=== PATIENT | male | born 2000 | race Hispanic/Latino ===

== ENCOUNTER 2020-01-04 23:40 | Emergency (ER) | payer BC ==
--- NOTE | 2020-01-05 02:30 | ER ---
Nurse's Notes [facility] Name: Bigg Beyer Age: 19 yrs Sex: Male : 2000 Arrival Date: 01/04/2020 Time: 23:40 Bed External Waiting Private MD: Diagnosis: Presentation: 01/04 00:55 Coronavirus screen: Proceed with normal triage. Ebola Screen: Patient negative for sg fever greater than or equal to 101.5 degrees Fahrenheit, and additional compatible Ebola Virus Disease symptoms Patient denies exposure to infectious person. Patient denies travel to an Ebola-affected area in the 21 days before illness onset. No symptoms or risks identified at this time. Initial Sepsis Screen: Does the patient meet any 2 criteria? No. Patient's initial sepsis screen is negative. Does the patient have a suspected source of infection? No. Patient's initial sepsis screen is negative. Risk Assessment: Do you want to hurt yourself or someone else? Patient reports no desire to harm self or others. Onset of symptoms was January 05, 2020. Care prior to arrival: None. Transition of care: patient was not received from another setting of care. 00:55 Method Of Arrival: Ambulatory sg 00:55 Acuity: SHERYL 3 sg 02:20 Chief complaint: Chief complaint: Patient states: I feel like my hearts racing, and Im sg a little short of breath. Shortness of breath x 2 days, reports having palpitations that come and go, pt denies n/v/d/fever. Historical: - Allergies: 01/03 00:55 No Known Allergies; sg - PMHx: 00:55 None; sg - Immunization history:: Adult Immunizations up to date. - Social history:: Smoking status: Patient reports the use of cigarette tobacco products. Screenin/12 02:29 Abuse screen: Denies threats or abuse. Denies injuries from another. sg ED Course: 01/03 00:55 Arm band placed on. sg 23:40 Patient arrived in ED. ds1 01/04 04:23 Triage completed. sg Administered Medications: No medications were administered Outcome: 02:29 Patient left the ED. sg 02:29 Eloped from waiting room, Time discovered patient gone: January 05, 2020 at 02:29 sg 02:29 Condition: stable Signatures: Nahun Kidd RN Elsa Duong ds1 Corrections: (The following items were deleted from the chart) 04: 02:20 Chief complaint: sg sg 04:24 02:01 Arm band placed on sg sg
== END 2020-01-05 02:29 | disposition left against medical advice (07) ==
LOC: ER 23:40
DX: Z53.21 Procedure and treatment not carried out due to patient leaving prior to being seen by health care provider (principal)
CPT/HCPCS: 99281

== ENCOUNTER 2021-04-22 13:19 | Emergency (ER) | payer BC ==
[2021-04-22 13:50] LABS: Absolute Lymphocytes (CBC) 3.4 K/uL (0.7-4.9); Basophils % 0.7 % (0-1.3); Lymphocytes % 33.2 % (15.3-44.8); MPV 8.7 fL (7.6-11.3); RBC Red Blood Cell Count 5.21 M/uL (4.33-5.43)
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
[2021-04-22 14:00] LABS: Protime INR 0.98
[2021-04-22 14:11] LABS: BUN Blood Urea Nitrogen 10 mg/dL (7-18); Bicarbonate 26 mmol/L (21-32); Glucose Level 92 mg/dL (74-106); Potassium 3.8 mmol/L (3.5-5.1); Sodium Level 141 mmol/L (136-145); Troponin (Emerg Dept Use Only) < 0.02 ng/mL (0.0-0.045)
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
[2021-04-22 15:10] VITALS: TEMP 98.5
[2021-04-22 15:13] VITALS: BP 135/86; O2SAT 99
--- NOTE | 2021-04-23 07:45 | EKG ---
Test Date: 2021-04-22 Test Time: 13:29:52 Plastic Bubble Packer: NICO MEASUREMENT RESULTS: Intervals: Rate: 103 SD: 142 QRSD: 82 QT: 330 QTc: 432 [place]: P: 20 SD: 142 QRS: 31 T: -35 INTERPRETIVE STATEMENTS: Sinus tachycardia Possible Inferior infarct, age undetermined Abnormal ECG Compared to ECG 01/07/2020 10:19:23 Sinus rhythm no longer present T-wave abnormality no longer present Possible ischemia no longer present Myocardial infarct finding still present Electronically Signed On 04-23-21 07:44:14 CDT by Sean Pleitez
== END 2021-04-22 15:00 | disposition home or self-care (01) ==
LOC: ER 13:19
DX: R55 Syncope and collapse (principal); V89.2XXA Person injured in unspecified motor-vehicle accident, traffic, initial encounter
CPT/HCPCS: 36415; 70450; 71045; 80048; 84484; 85025; 85610; 85730; 93005; 99284

== ENCOUNTER 2022-12-17 06:01 | Emergency (ER) | payer BC ==
[2022-12-17 08:06] LABS: Absolute Lymphocytes (CBC) 1.5 K/uL (0.7-4.9); Hematocrit 44.5 % (39.6-49.0); Lymphocytes % 12.8 % (15.3-44.8); MPV 9.1 fL (7.6-11.3); RBC Red Blood Cell Count 5.29 M/uL (4.33-5.43)
[2022-12-17 08:08] LABS: Protime INR 1.08
[2022-12-17 08:29] LABS: Albumin 3.6 g/dL (3.4-5.0); Bilirubin Direct 0.1 mg/dL (0-0.2); Bilirubin Indirect, Calculated 0.3 mg/dL (0.2-0.8); Bilirubin Total 0.4 mg/dL (0.2-1.0); Magnesium 2.3 mg/dL (1.6-2.4); Protein, Total 7.6 g/dL (6.4-8.2)
[2022-12-17 08:30] LABS: Troponin High Sensitivity 13607.1 pg/mL (<58.9)
[2022-12-17] MEDS ORDERED: ASPIRIN 81 MG CHEWABLE TABLET ONE (08:47)
[2022-12-17] MEDS ORDERED: CLOPIDOGREL 75 MG TABLET ONE (08:47)
[2022-12-17] MEDS ORDERED: METOPROLOL TAR 50 MG TAB ONE (08:47)
[2022-12-17] MEDS ORDERED: ATORVASTATIN 40 MG TAB ONE (08:47)
[2022-12-17] MEDS ORDERED: HEPARIN 5000 UNIT/ML 1 ML VIAL ONE (08:47)
[2022-12-17] MEDS ORDERED: FAMOTIDINE 20 MG/2 ML VIAL IV ONE (08:48)
[2022-12-17] MEDS ORDERED: METOPROLOL TARTRATE 5 MG/5 ML INJ IV ONE (08:48)
[2022-12-17] MEDS ORDERED: HEPARIN/D5W 25,000 UNIT/500 ML BAG IV ONE (08:48)
[2022-12-17] MEDS ORDERED: NA CHLORIDE 0.9% 1,000 ML ONE (08:48)
--- NOTE | 2022-12-17 08:52 | ER ---
Nurse's Notes [facility] Name: Bigg Beyer Age: 22 yrs Sex: Male : 2000 Arrival Date: 12/17/2022 Time: 06:01 Bed 7 Private MD: Diagnosis: Non ST elevation [place];Dyspnea;Morbid (severe) obesity with alveolar hypoventilation;Chest pain, unspecified Presentation: 12/17 06:09 Coronavirus screen: Vaccine status: Patient reports receiving the 2nd dose of the covid pf1 vaccine. pfizer Client denies travel out of the [place] in the last 14 days. At this time, the client does not indicate any symptoms associated with coronavirus-19. Ebola Screen: Patient negative for fever greater than or equal to 101.5 degrees Fahrenheit, and additional compatible Ebola Virus Disease symptoms. Initial Sepsis Screen: Does the patient meet any 2 criteria? No. Patient's initial sepsis screen is negative. Does the patient have a suspected source of infection? No. Patient's initial sepsis screen is negative. Risk Assessment: Do you want to hurt yourself or someone else? Patient reports no desire to harm self or others. 06:09 Method Of Arrival: Wheelchair pf1 06:09 Acuity: SHERYL 2 pf1 09:34 Chief complaint: Patient states: chest pain since last night. Onset of symptoms was iw December 17, 2022. Historical: - Allergies: 06:17 No Known Allergies; pf1 - PMHx: 08:59 Sleep Apnea; unknown cadiac arrhythmia; iw - PSHx: 08:59 loop recorder; iw - Family history:: pertinent for. Screenin:57 [facility] ED Fall Risk Assessment (Adult) History of falling in the last 3 months, iw including since admission No falls in past 3 months (0 pts). Abuse screen: Denies threats or abuse. Denies injuries from another. Nutritional screening: No deficits noted. Tuberculosis screening: No symptoms or risk factors identified. Assessment: 08:56 General: Appears in no apparent distress. Behavior is calm, cooperative. Pain: iw Complains of pain in mid-sternal area Pain does not radiate. Pain began Is intermittent. Neuro: Level of Consciousness is awake, alert, obeys commands, Oriented to person, place, time, situation, Moves all extremities. Full function. Cardiovascular: Reports chest pain. Respiratory: Respiratory effort is even, unlabored, Respiratory pattern is regular, symmetrical. Derm: Skin is intact, is healthy with good turgor. Musculoskeletal: Range of motion: intact in all extremities. Vital Signs: 06:09 BP 136 / 86; Pulse 101; Resp 18; Temp 98.9; Pulse Ox 97% on R/A; Weight 161.03 kg; pf1 Height 5 ft. 7 in. ; Pain 8/10; 08:55 BP 110 / 74; Pulse 96; Resp 19; Pulse Ox 100% on R/A; iw 06:09 Body Mass Index 55.60 (161.03 kg, 170.18 cm) pf1 06:09 Pain Scale: Adult pf1 ED Course: 06:02 Patient arrived in ED. jj6 06:17 Triage completed. pf1 07:18 Chase Wilson MD is Attending Physician. dread 07:57 XRAY Chest (1 view) In Process Unspecified. EDMS 07:57 Initial lab(s) drawn, by il, sent to lab. Inserted saline lock: 20 gauge in right tm3 antecubital area, using aseptic technique. 07:58 PREGU Sent. tm3 07:58 Urinalysis w/ reflexes Sent. tm3 07:58 Lipase Sent. tm3 08:00 0800 SPOKE WITH [facility] FOR TRANSFER DECLINED PT DUE TO COMPACITY. kj1 08:03 Isaura Khan, RN is Primary Nurse. iw 08:08 EKG done, by ED staff. tm3 08:57 Patient has correct armband on for positive identification. Client placed on continuous iw cardiac and pulse oximetry monitoring. NIBP monitoring applied. monitor technician on. 09:06 Inserted saline lock: 20 gauge in left antecubital area, using aseptic technique. iw Patient maintains SpO2 saturation greater than 95% on room air. 09:33 No provider procedures requiring assistance completed. Patient transferred, IV remains iw in place. 16:[address] WILSON CALLED AND SPOKE WITH [facility] \T\ 830 TO FOR TRANSFER kj1 0857 ACCEPTANCE 0855 ADMIN APPROVAL PT [facility]. Administered Medications: 08:31 CANCELLED (Duplicate Order): Aspirin PO Chewable Tablet 81 mg PO once dread 08:55 Drug: Aspirin PO Chewable Tablet 324 mg Route: PO; iw 09:30 Follow up: Response: No adverse reaction iw 08:55 Drug: Clopidogrel PO 300 mg Route: PO; iw 09:30 Follow up: Response: No adverse reaction iw 08:55 Drug: Atorvastatin PO 40 mg Route: PO; iw 09:10 Follow up: Response: No adverse reaction iw 08:58 Drug: Metoprolol PO 50 mg Route: PO; iw 09:30 Follow up: Response: No adverse reaction iw 09:00 Drug: Heparin (DVT/PE- Bolus per protocol) - HEParin IVP 80 units/kg {Co-Signature: aa5 iw (Felicita Fierro RN).} Route: IVP; Site: right antecubital; 09:30 Follow up: Response: No adverse reaction iw 09:15 Drug: Heparin (DVT/PE Drip) - ([place] [address] units, D5W IV 500 ml) 18 units/kg/hr iw {Co-Signature: aa5 (Felicita Fierro RN).} Route: IV; Rate: per protocol; Site: right antecubital; 09:30 Follow up: IV Status: Infusion continued upon transfer iw 09:16 Drug: Famotidine IVP 20 mg Route: IVP; Site: left antecubital; iw 09:28 Drug: NS 0.9% IV 1000 ml Route: IV; Rate: 1 bolus; Site: left antecubital; iw 09:33 Follow up: IV Status: Infusion continued upon transfer iw 09:28 Not Given (Patient Refused): Metoprolol IVP 5 mg IVP once; Hold for SBP <100 or HR <60. iw Medication: 09:34 VIS not applicable for this client. iw Outcome: 08:51 ER care complete, transfer ordered by MD. [place] 09:33 Transferred by helicopter to [facility], Transfer form completed. X-rays sent iw w/ patient. 09:33 Condition: stable 09:33 Discharge instructions given to patient, family, Instructed on the need for transfer. 09:34 Patient left the ED. iw Signatures: Dispatcher [employer] EDLarry Christiansen 3 Chase Wilson MD MD cha Williams, Irene, RN RN iw Dulce Childress kj1 Pamela Ochoa jj6 Emma Goodwin RN RN pf1 Felicita Fierro RN aa5 Corrections: (The following items were deleted from the chart) 07:24 06:09 Chief complaint: Patient states: substernal chest pain of 8 with SOB,onset 0515, iw while sleeping. 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 pf1 08:59 08:55 Pulse 96bpm; Resp 19bpm; Pulse Ox 100% RA; iw iw
--- NOTE | 2022-12-17 08:52 | EDPHYS ---
Physician Documentation [facility] Name: Bigg Beyer Age: 22 yrs Sex: Male : 2000 Arrival Date: 12/17/2022 Time: 06:01 Bed 7 Private MD: ED Physician Chase Cummings HPI: 12/17 08:36 This 22 yrs old Male presents to ER via Wheelchair with complaints of Chest dread Pain, Breathing Difficulty. 08:36 The patient or guardian reports chest pain that is located primarily in the substernal dread area. The pain does not radiate. Associated signs and symptoms: The patient has no apparent associated signs or symptoms. The chest pain is described as causing indigestion, a pressure. Duration: The patient or guardian reports a single episode, that is now resolved. Modifying factors: The symptoms are alleviated by nothing. the symptoms are aggravated by nothing. Severity of pain: At its worst the pain was severe in the emergency department the pain has resolved and did so just prior to arrival. The patient has not experienced similar symptoms in the past. Historical: - Allergies: 06:17 No Known Allergies; pf1 - PMHx: 08:59 Sleep Apnea; unknown cadiac arrhythmia; iw - PSHx: 08:59 loop recorder; iw - Family history:: pertinent for. ROS: 08:36 Constitutional: Negative for fever, chills, and weight loss, Eyes: Negative for injury, dread pain, redness, and discharge, ENT: Negative for injury, pain, and discharge, Neck: Negative for injury, pain, and swelling, Respiratory: Negative for shortness of breath, cough, wheezing, and pleuritic chest pain, Abdomen/GI: Negative for abdominal pain, nausea, vomiting, diarrhea, and constipation, Back: Negative for injury and pain, : Negative for injury, bleeding, discharge, and swelling, MS/Extremity: Negative for injury and deformity, Skin: Negative for injury, rash, and discoloration, Neuro: Negative for headache, weakness, numbness, tingling, and seizure, Psych: Negative for depression, anxiety, suicide ideation, homicidal ideation, and hallucinations, Allergy/Immunology: Negative for hives, rash, and allergies, Endocrine: Negative for neck swelling, polydipsia, polyuria, polyphagia, and marked weight changes, Hematologic/Lymphatic: Negative for swollen nodes, abnormal bleeding, and unusual bruising. 08:36 Cardiovascular: Positive for chest pain, of the chest. Exam: 08:36 Constitutional: This is a well developed, well nourished patient who is awake, alert, dread and in no acute distress. Head/Face: Normocephalic, atraumatic. Eyes: Pupils equal round and reactive to light, extra-ocular motions intact. Lids and lashes normal. Conjunctiva and sclera are non-icteric and not injected. Cornea within normal limits. Periorbital areas with no swelling, redness, or edema. ENT: Nares patent. No nasal discharge, no septal abnormalities noted. Tympanic membranes are normal and external auditory canals are clear. Oropharynx with no redness, swelling, or masses, exudates, or evidence of obstruction, uvula midline. Mucous membranes moist. Neck: Trachea midline, no thyromegaly or masses palpated, and no cervical lymphadenopathy. Supple, full range of motion without nuchal rigidity, or vertebral point tenderness. No Meningismus. Chest/axilla: Normal chest wall appearance and motion. Nontender with no deformity. No lesions are appreciated. Cardiovascular: Regular rate and rhythm with a normal S1 and S2. No gallops, murmurs, or rubs. Normal PMI, no JVD. No pulse deficits. Respiratory: Lungs have equal breath sounds bilaterally, clear to auscultation and percussion. No rales, rhonchi or wheezes noted. No increased work of breathing, no retractions or nasal flaring. Abdomen/GI: Soft, non-tender, with normal bowel sounds. No distension or tympany. No guarding or rebound. No evidence of tenderness throughout. Back: No spinal tenderness. No costovertebral tenderness. Full range of motion. Male : Normal genitalia with no discharge or lesions. Skin: Warm, dry with normal turgor. Normal color with no rashes, no lesions, and no evidence of cellulitis. MS/ Extremity: Pulses equal, no cyanosis. Neurovascular intact. Full, normal range of motion. Neuro: Awake and alert, GCS 15, oriented to person, place, time, and situation. Cranial nerves II-XII grossly intact. Motor strength 5/5 in all extremities. Sensory grossly intact. Cerebellar exam normal. Normal gait. Psych: Awake, alert, with orientation to person, place and time. Behavior, mood, and affect are within normal limits. 08:36 ECG was reviewed by the Attending Physician. 09:09 Musculoskeletal/extremity: DVT Exam: No signs of deep vein thrombosis. no pain, no dread swelling, no tenderness, negative Homans' sign noted on exam, no appreciated bluish discoloration, no erythema, no increased warmth. Vital Signs: 06:09 BP 136 / 86; Pulse 101; Resp 18; Temp 98.9; Pulse Ox 97% on R/A; Weight 161.03 kg; pf1 Height 5 ft. 7 in. ; Pain 8/10; 08:55 BP 110 / 74; Pulse 96; Resp 19; Pulse Ox 100% on R/A; iw 06:09 Body Mass Index 55.60 (161.03 kg, 170.18 cm) pf1 06:09 Pain Scale: Adult pf1 MDM: 07:18 Patient medically screened. dread 08:36 Differential diagnosis: abnormal EKG, acute myocardial infarction, acute pericarditis, dread anxiety, coronary artery disease chest wall pain, Cholelithiasis hiatal hernia, mitral valve prolapse, pancreatitis, peptic ulcer disease, pleurisy, pulmonary embolus, stable angina, thoracic aortic disection, unstable angina. HEART Score: History: Highly Suspicious (2), ECG: Non specific repolarization disturbance / LBTB / PM (1), Age: Risk Factors: > or = 3 Risk factors for atherosclerotic disease (2), [Hypertension] [+ Family HX] [Obesity] Troponin: > or = 3 x Normal Limit (2). [place] Risk Score: 1 - Three or more CAD risk factors, 1- Known CAD. Data reviewed: vital signs, nurses notes, lab test result(s), EKG, radiologic studies, plain films. Consideration of Admission/Observation Escalation of care including admission/observation considered. I considered the following discharge prescriptions or medication management in the emergency department Medications were administered in the Emergency Department. See MAR. Historians other than the Patient: Family Member: MOM. Care significantly affected by the following chronic conditions: Hypertension, Obesity. Counseling: I had a detailed discussion with the patient and/or guardian regarding: the historical points, exam findings, and any diagnostic results supporting the discharge/admit diagnosis, the presence of at least one elevated blood pressure reading (>120/80) during this emergency department visit, lab results, radiology results, the need to transfer to another facility, for higher level of care, [facility] does not immediately have the required specialist. 09:09 Test considered but Not performed: CT: NO CT PE. 12/17 07:20 Order name: Basic Metabolic Panel; Complete Time: 08:31 12/17 07:20 Order name: CBC with Diff; Complete Time: 08:30 dread 12/17 07:20 Order name: D-Dimer; Complete Time: 08:12/17 07:20 Order name: LFT's; Complete Time: 08:31 12/17 07:20 Order name: Magnesium; Complete Time: 08:12/17 07:20 Order name: NT PRO-BNP; Complete Time: :12/17 07:20 Order name: PT-INR; Complete Time: 08:12/17 07:20 Order name: Troponin HS; Complete Time: 08:31 12/17 07:20 Order name: Lipase; Complete Time: :12/17 07:20 Order name: XRAY Chest (1 view); Complete Time: 09:33 12/17 07:20 Order name: EKG; Complete Time: 07:21 12/17 07:20 Order name: Cardiac monitoring; Complete Time: 08:15 12/17 07:20 Order name: EKG - Nurse/Tech; Complete Time: 08:08 12/17 07:20 Order name: IV Saline Lock; Complete Time: 08:15 12/17 07:20 Order name: Labs collected and sent; Complete Time: 07:58 12/17 07:20 Order name: O2 Per Protocol; Complete Time: 08:15 12/17 07:20 Order name: O2 Sat Monitoring; Complete Time: 08:15 12/17 08:51 Order name: IV Saline Lock - Large Bore; Complete Time: 08:58 [facility] EC:36 Rate is 89 beats/min. Rhythm is regular. QRS [place] is Normal. MD interval is normal. QRS dread interval is normal. QT interval is normal. No Q waves. T waves are Normal. ST Segment is elevated in leads II, aVF. Clinical impression: Inferior HI - age indeterminate. Interpreted by me. Reviewed by me. Administered Medications: 08:31 CANCELLED (Duplicate Order): Aspirin PO Chewable Tablet 81 mg PO once dread 08:55 Drug: Aspirin PO Chewable Tablet 324 mg Route: PO; iw 09:30 Follow up: Response: No adverse reaction iw 08:55 Drug: Clopidogrel PO 300 mg Route: PO; iw 09:30 Follow up: Response: No adverse reaction iw 08:55 Drug: Atorvastatin PO 40 mg Route: PO; iw 09:10 Follow up: Response: No adverse reaction iw 08:58 Drug: Metoprolol PO 50 mg Route: PO; iw 09:30 Follow up: Response: No adverse reaction iw 09:00 Drug: Heparin (DVT/PE- Bolus per protocol) - HEParin IVP 80 units/kg {Co-Signature: aa5 iw (Felicita Fierro RN).} Route: IVP; Site: right antecubital; 09:30 Follow up: Response: No adverse reaction iw 09:15 Drug: Heparin (DVT/PE Drip) - ([place] [address] units, D5W IV 500 ml) 18 units/kg/hr iw {Co-Signature: aa5 (Felicita Fierro RN).} Route: IV; Rate: per protocol; Site: right antecubital; 09:30 Follow up: IV Status: Infusion continued upon transfer iw 09:16 Drug: Famotidine IVP 20 mg Route: IVP; Site: left antecubital; iw 09:28 Drug: NS 0.9% IV 1000 ml Route: IV; Rate: 1 bolus; Site: left antecubital; iw 09:33 Follow up: IV Status: Infusion continued upon transfer iw 09:28 Not Given (Patient Refused): Metoprolol IVP 5 mg IVP once; Hold for SBP <100 or HR <60. iw Disposition Summary: 12/17/22 08:51 Transfer Ordered Transfer Location: [facility] dread Reason: Higher level of care dread Condition: Serious dread Problem: new dread Symptoms: have improved dread Accepting Physician: SUKUMAR MARMOLEJO(12/17/22 09:34) iw Diagnosis - Non ST elevation HI dread - Dyspnea dread - Morbid (severe) obesity with alveolar hypoventilation dread - Chest pain, unspecified dread Forms: - Medication Reconciliation Form dread - SBAR form dread Signatures: Dispatcher [employer] Chase Lockett MD MD cha Williams, Irene, RN RN Emma Goodwin RN RN pf1 Felicita Fierro RN aa5 Corrections: (The following items were deleted from the chart) 08:31 07:20 Aspirin PO Chewable Tablet 81 mg PO once ordered. [facility] 08:53 Misc. Order ordered. [facility] 08:53 Oxygen ordered. [facility] 08:51 TO JALEEL [facility]
--- NOTE | 2022-12-17 09:13 | RAD REPORT ---
EXAM DESCRIPTION: Brittney Single View12/17/2022 7:55 am CLINICAL HISTORY: Chest pain COMPARISON: 2021 FINDINGS: The lungs appear clear of acute infiltrate. The heart is normal size. Cardiac monitoring in place IMPRESSION: No acute abnormalities displayed
[2022-12-17 10:04] VITALS: TEMP 98.9
[2022-12-17 10:05] VITALS: BP 110/74; O2SAT 100
--- NOTE | 2022-12-18 14:23 | EKG ---
Test Date: 2022-12-17 Test Time: 08:06:09 Tube Coater: ELÍAS MEASUREMENT RESULTS: Intervals: Rate: 89 VA: 128 QRSD: 90 QT: 340 QTc: 413 [place]: P: -6 VA: 128 QRS: 68 T: 26 INTERPRETIVE STATEMENTS: Normal sinus rhythm Nonspecific ST abnormality Abnormal ECG Compared to ECG 09/22/2022 09:46:31 ST (T wave) deviation now present Electronically Signed On 12-18-22 14:21:43 CDT by Sandro Puri
--- NOTE | 2022-12-19 17:16 | EKG ---
Test Date: 2022-12-17 Test Time: 06:11:40 Credit Checker: MITCHELL MEASUREMENT RESULTS: Intervals: Rate: 104 MA: 126 QRSD: 74 QT: 318 QTc: 418 [place]: P: 28 MA: 126 QRS: 74 T: 42 INTERPRETIVE STATEMENTS: Sinus tachycardia Otherwise normal ECG Compared to ECG 09/22/2022 09:46:31 Sinus rhythm no longer present Electronically Signed On 12-19-22 17:11:50 CDT by Sandro Puri
== END 2022-12-17 09:34 | disposition short-term general hospital (02) ==
LOC: ER 06:01
DX: I21.4 Non-ST elevation (NSTEMI) myocardial infarction (principal); R06.00 Dyspnea, unspecified; E66.2 Morbid (severe) obesity with alveolar hypoventilation; Z68.43 Body mass index [BMI] 50.0-59.9, adult
CPT/HCPCS: 93005 ×2; 85025; 80048; 36415; 83735; 85610; 85379; 80076; 84484; 83690; 83880; 71045; 99285; J1644 ×2; J7030

== ENCOUNTER → 2023-09-18 | Emergency (ER) | payer BC ==
[~2023-09-18] MED LIST: DERMABOND SKIN ADHESIVE TOP ONE; LIDOCAINE 1% 20 ML MDV ONE; TDAP (DIPHTH,PERTUSS(ACELL),TET VAC) 0.5 ML VIAL IMVAC ONE
--- NOTE | 2023-09-18 21:14 | ER ---
Nurse's Notes [facility] Name: Bigg Beyer Age: 23 yrs Sex: Male : 2000 Arrival Date: 09/18/2023 Time: 19:56 Bed 12 Private MD: Diagnosis: Laceration without foreign body of left hand Presentation: 09/17 20:12 Chief complaint: Patient states: CUT THE TOP OF HIS LEFT MIDDLE FINGER WITH A KNIFE jj7 WHILE TRYING TO CUT A ZIP TIE. Coronavirus screen: At this time, the client does not indicate any symptoms associated with coronavirus-19. Ebola Screen: No symptoms or risks identified at this time. Complicating Factors: There are no complicating factors for this patient. Initial Sepsis Screen: Does the patient meet any 2 criteria? No. Patient's initial sepsis screen is negative. Does the patient have a suspected source of infection? No. Patient's initial sepsis screen is negative. Risk Assessment: Do you want to hurt yourself or someone else? Patient reports no desire to harm self or others. Onset of symptoms was September 18, 2023. 20:12 Method Of Arrival: Ambulatory 7 20:12 Acuity: SHERYL 4 jj7 Triage Assessment: 20:15 General: Appears in no apparent distress. uncomfortable, Behavior is calm, cooperative, jj7 appropriate for age. Pain: Complains of pain in dorsal aspect of middle phalanx of left middle finger and dorsal aspect of middle phalanx of left ring finger. Injury Description: Laceration sustained to dorsal aspect of middle phalanx of left middle finger and dorsal aspect of middle phalanx of left ring finger. Historical: - Allergies: 20:15 No Known Allergies; jj7 - Home Meds: 20:52 None [Active]; tl4 - PMHx: 20:15 Sleep Apnea; SVT (Sleep Apnea); AV NODE BLOCK (Sleep Apnea); Myocarditis; jj7 - Immunization history:: Adult Immunizations unknown, Last tetanus immunization: unknown. - Social history:: Smoking status: Patient/guardian denies using tobacco, the patient reports quitting approximately 2 years ago, Patient uses alcohol, occasionally. Patient/guardian denies using street drugs, IV drugs. Screenin:18 [facility] ED Fall Risk Assessment (Adult) History of falling in the last 3 months, jj7 including since admission No falls in past 3 months (0 pts) Confusion or Disorientation No (0 pts) Intoxicated or Sedated No (0 pts) Impaired Gait No (0 pts) Mobility Assist Device Used No (0 pt) Altered Elimination No (0 pt) Score/Fall Risk Level 0 - 2 = Low Risk Oriented to surroundings, Maintained a safe environment, Educated pt \T\ family on fall prevention, incl call for assistance when getting out of bed. Abuse screen: Denies threats or abuse. Nutritional screening: No deficits noted. Tuberculosis screening: No symptoms or risk factors identified. Assessment: 20:49 General: Appears in no apparent distress. Behavior is calm, cooperative. Pain: tl4 Complains of pain in left hand. Neuro: Level of Consciousness is awake, alert, obeys commands, Oriented to person, place, time, situation, Moves all extremities. Gait is steady, Speech is normal. Cardiovascular: Capillary refill < 3 seconds Patient's skin is warm and dry. Respiratory: Airway is patent Respiratory effort is even, unlabored, Respiratory pattern is regular, symmetrical, Breath sounds are clear bilaterally. GI: No deficits noted. No signs and/or symptoms were reported involving the gastrointestinal system. : No deficits noted. No signs and/or symptoms were reported regarding the genitourinary system. EENT: No deficits noted. No signs and/or symptoms were reported regarding the EENT system. Derm: No deficits noted. No signs and/or symptoms reported regarding the dermatologic system. Musculoskeletal: laceration. Injury Description: Laceration sustained to dorsal aspect of middle phalanx of left ring finger and dorsal aspect of middle phalanx of left middle finger is clean. 21:25 Reassessment: No changes from previously documented assessment. Patient and/or family tl4 updated on plan of care and expected duration. Pain level reassessed. Patient is alert, oriented x 3, equal unlabored respirations, skin warm/dry/pink. Vital Signs: 20:12 BP 141 / 80; Pulse 89; Resp 19; Temp 97.9; Pulse Ox 97% ; Weight 156.94 kg; Height 5 jj7 ft. 7 in. ; Pain 8/10; 21:25 BP 129 / 75; Pulse 71; Resp 18; Temp 98.7(O); Pulse Ox 99% on R/A; Pain 0/10; tl4 20:12 Body Mass Index 54.19 (156.94 kg, 170.18 cm) jj7 20:12 Pain Scale: Adult jj7 21:25 Pain Scale: Adult tl4 ED Course: 20:00 Patient arrived in ED. es 20:06 Daniel Corbett MD is Attending Physician. ec2 20:15 Triage completed. jj7 20:15 Arm band placed on right wrist. jj7 20:18 Patient has correct armband on for positive identification. Bed in low position. Call j light in reach. 20:32 Larry Trevino, RN is Primary Nurse. tl4 20:51 Provided Education on: ED process. Door closed. Noise minimized. Moved to private room. tl4 20:51 Assist provider with laceration repair Set up tray. Patient did not have IV access tl4 during this emergency room visit. Administered Medications: 20:42 Drug: Boostrix Tdap IM 0.5 ml IM once; as a single dose {Note: [facility] Lot tl4 #[id number], Exp 07/08/2025. VIS date 03/31/2021.} Route: IM; Site: right deltoid; 21:14 Follow up: Response: No adverse reaction tl4 21:14 Follow up: Response: (VIS) Vaccine information sheet provided today. Questions and/or tl4 concerns addressed. VIS edition date: Jan 29, 2021.; No adverse reaction 21:25 Not Given (Physician Discretion): lidocaine(1 %) 10 ml 20 ml Infiltration once; to tl4 bedside Medication: 20:50 Vaccine Information Statement (VIS) provided today. Questions and/or concerns tl4 addressed. VIS edition date: March 31, 2021. Outcome: 21:13 Discharge ordered by . ec2 21:26 Discharged to home ambulatory, with family, tl4 21:26 Condition: stable 21:26 Discharge instructions given to patient, Instructed on discharge instructions, follow up and referral plans. Demonstrated understanding of instructions, follow-up care, 21:26 Patient left the ED. tl4 Signatures: Christine Moya Juwairiyah, RN RN jjDaniel Reyes MD MD ec2 LogLarry maddox RN RN tl4 Corrections: (The following items were deleted from the chart) 20:52 20:52 PMHx: unknown cadiac arrhythmia; tl4 tl4 : 20:52 PSHx: loop recorder; tl4 tl4 21:14 Lidocaine Infiltration (1 %) 10 ml 20 ml Infiltration; Administered by Dr Corbett tl4 tl4 21:14 Response: No adverse reaction tl4 tl4
--- NOTE | 2023-09-18 21:14 | EDPHYS ---
Physician Documentation [facility] Name: Bigg Beyer Age: 23 yrs Sex: Male : 2000 Arrival Date: 09/18/2023 Time: 19:56 Bed 12 Private MD: ED Physician Daniel Corbett HPI: 09/17 20:18 This 23 yrs old Male presents to ER via Ambulatory with complaints of ec2 Laceration To Hand, LACERATION TO FINGERS. 20:18 Patient arrives today for evaluation of a laceration to his hand.. ec2 20:18 Patient reports that he accidentally cut himself and injured the left middle finger and ec2 left ring finger. No other injuries, unsure of his tetanus status.. Historical: - Allergies: 20:15 No Known Allergies; jj7 - Home Meds: 20:52 None [Active]; tl4 - PMHx: 20:15 Sleep Apnea; SVT (Sleep Apnea); AV NODE BLOCK (Sleep Apnea); Myocarditis; jj7 - Immunization history:: Adult Immunizations unknown, Last tetanus immunization: unknown. - Social history:: Smoking status: Patient/guardian denies using tobacco, the patient reports quitting approximately 2 years ago, Patient uses alcohol, occasionally. Patient/guardian denies using street drugs, IV drugs. ROS: 20:18 Constitutional: as per hpi ec2 Exam: 20:18 Constitutional: GEN: NAD Head: atraumatic Eyes: EOMI Ears: External ears are ec2 normal. CV: regular rate LUNGS: no respiratory distress ABD: non-distended SKIN: Avulsion noted to the middle of the left middle finger. Small 2 cm laceration to the distal portion of the left ring finger. Good range of motion, no arterial bleeding. MSK: no evidence of trauma NEURO: moves all extremities equally Vital Signs: 20:12 BP 141 / 80; Pulse 89; Resp 19; Temp 97.9; Pulse Ox 97% ; Weight 156.94 kg; Height 5 jj7 ft. 7 in. ; Pain 8/10; 21:25 BP 129 / 75; Pulse 71; Resp 18; Temp 98.7(O); Pulse Ox 99% on R/A; Pain 0/10; tl4 20:12 Body Mass Index 54.19 (156.94 kg, 170.18 cm) jj7 20:12 Pain Scale: Adult jj7 21:25 Pain Scale: Adult tl4 Laceration: 21:12 Wound Repair of 2cm ( 0.8in ) subcutaneous laceration to left hand. Distal ec2 neuro/vascular/tendon intact. Anesthesia: none with none. Wound prep: Moderate cleansing by me. Skin closed with dermabond Adhesive skin closure using Dermabond. MDM: 20:17 Patient medically screened. ec2 20:18 Data reviewed: vital signs. ED course: Patient arrives today for evaluation of a hand ec2 laceration. Examination remarkable for laceration and skin avulsion as noted above. Will clean the wounds, anesthetized the area and do a laceration repair. Considered arterial injury, bony injury. Doubt retained foreign body.. 21:00 ED course: After additional discussion, patient expresses some hesitation regarding ec2 laceration repair, would opt for Dermabond instead given fear of needles.. 09/17 21:00 Order name: Dermabond; Complete Time: 21:24 ec2 Administered Medications: 20:42 Drug: Boostrix Tdap IM 0.5 ml IM once; as a single dose {Note: [facility] Lot tl4 #[id number], Exp 07/08/2025. VIS date 03/31/2021.} Route: IM; Site: right deltoid; 21:14 Follow up: Response: No adverse reaction tl4 21:14 Follow up: Response: (VIS) Vaccine information sheet provided today. Questions and/or tl4 concerns addressed. VIS edition date: Jan 29, 2021.; No adverse reaction 21:25 Not Given (Physician Discretion): lidocaine(1 %) 10 ml 20 ml Infiltration once; to tl4 bedside Disposition Summary: 09/18/23 21:13 Discharge Ordered Notes: Location: Home ec2 Condition: Stable ec2 Diagnosis - Laceration without foreign body of left hand ec2 Followup: ec2 - With: Private Physician - When: - Reason: Recheck today's complaints Discharge Instructions: - Discharge Summary Sheet ec2 - Tissue Adhesive Wound Care, [id number] ec2 Forms: - Work release form ec2 - Medication Reconciliation Form ec2 - Thank You Letter ec2 - Antibiotic Education ec2 - Prescription Opioid Use ec2 - Patient Portal Instructions ec2 - Leadership Thank You Letter ec2 Signatures: Galdino Alexander RN RN jj7 Daniel Corbett MD MD ec2 Larry Trevino RN RN tl4 Corrections: (The following items were deleted from the chart) 20:52 20:52 PMHx: unknown cadiac arrhythmia; tl4 tl4 20:52 20:52 PSHx: loop recorder; tl4 tl4
[2023-09-18 21:44] VITALS: BP 129/75; TEMP 98.7; O2SAT 99
== END ==
LOC: ER 19:56
PROC: 0HQGXZZ Repair Left Hand Skin, External Approach (ICD-10-PCS; principal; 2023-09-18)
DX: S61.412A Laceration without foreign body of left hand, initial encounter (principal)
CPT/HCPCS: 96372; 99284; J2001